=== PATIENT | male | born 1965 | race Caucasian/White ===

== ENCOUNTER 2020-05-26 14:57 | Emergency (ER) | payer OTHER, SELFPAY ==
--- NOTE | 2020-05-26 16:02 | PC.NURSE ---
provider and nursing at bedside
[2020-05-26 16:08] VITALS: BP 132/78; PULSE 65; RESP 17; TEMP 36.8; O2SAT 98; BMI 28.7
--- NOTE | 2020-05-26 16:12 | ECG_ITS ---
Test Reason : Dizziness Blood Pressure : / mmHG Vent. Rate : 058 BPM Atrial Rate : 058 BPM P-R Int : 154 ms QRS Dur : 096 ms QT Int : 398 ms P-R-T Axes : 037 015 034 degrees QTc Int : 390 ms Sinus bradycardia Otherwise normal ECG When compared with ECG of 05-JAN-2019 12:24, Premature ventricular complexes are no longer Present Referred By: Johnathan Daigle Electronically Signed By:Prsaanth Neri
--- NOTE | 2020-05-26 16:12 | CT_ITS ---
EXAMINATION: CT ANGIOGRAM HEAD CT ANGIOGRAM NECK CLINICAL INFORMATION: Dizziness. Evaluation for cerebellar stroke. History of aneurysm. COMPARISON: Brain MRI from 01/05/2019. CTA head and neck from 01/05/2019. TECHNIQUE: Initial noncontrast warp tension tester imaging of the head and neck was performed. Noncontrast head CT was also performed. Test bolus sequences followed by intravenous administration 70 mL of Omnipaque 350. Helical imaging was performed in the axial plane from the aortic arch to the skull vertex. Delayed postcontrast imaging of the head was also performed. The data was processed at the computer technologist's workstation for generation of MIP sequences. Angled MIPs and volume rendered reformatted images were also generated at an offline 3D workstation. Stenoses are assessed in accordance with NASCET criteria unless otherwise indicated. DLP: 2365 mGy-cm This CT examination was performed using dose optimization techniques as appropriate, variously including the following: *Automated exposure control. *Adjustment of mA and/or kV according to patient size (this includes techniques or standardized protocols for targeted exams where dose is matched to indication/reason for exam; i.e. extremities or head). *Use of iterative reconstruction technique. FINDINGS: CT Head: There is no evidence of acute intracranial hemorrhage or edematous territorial infarction. A few foci of hypoattenuation in the periventricular and deep white matter are consistent with mild microangiopathy. Chandra-white matter differentiation is preserved. The ventricles are normal in size and configuration. No evidence for obstructive hydrocephalus. No abnormal mass effect or midline shift. No extra-axial fluid collections. No pathologic intra-axial enhancement or regional oligemia. No acute soft tissue or osseous abnormalities. Mild mucosal thickening of the paranasal sinuses. Moderate leftward nasal septal deviation. The mastoid air cells and middle ear cavities remain well aerated. CT Neck: The thyroid gland and remaining cervical soft tissues are within normal limits. No significant abnormalities of the cervical spine. CT Upper Chest: The visualized lung apices and upper mediastinum are within normal limits. Neck CTA: Aortic Arch: Normal contour and caliber. Two vessel branching pattern of the arch with left common carotid artery arising from the brachiocephalic trunk. Great Vessel Origins: No significant stenosis of the branch origins. Right Common Carotid Artery: Normal opacification without focal stenosis or occlusion. Cervical Right Internal Carotid Artery: The distal ICA is tortuous. 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 Otherwise, normal opacification without focal stenosis or occlusion. Left Common Carotid Artery: Normal opacification without focal stenosis or occlusion. Cervical Left Internal Carotid Artery: Normal opacification without focal stenosis or occlusion. Cervical Right Vertebral Artery: Co-dominant. Normal opacification without focal stenosis or occlusion. Cervical Left Vertebral Artery: Co-dominant. The proximal left vertebral artery is partially obscured by streak artifact from dense contrast bolus within collateral venous structures in the left posterior neck. Otherwise, normal opacification without focal stenosis or occlusion. Brain CTA: Intracranial Internal Carotid Arteries: Calcific atherosclerotic disease of the intracranial internal carotid arteries without occlusion or flow-limiting stenosis. Normal contrast opacification of the petrous, cavernous, paraophthalmic, and supraclinoid segments of the internal carotid arteries without focal stenosis. Redemonstrated 0.15 cm saccular aneurysm versus infundibulum arising from the posterior wall of the left carotid terminus (image [id number]). The previously noted tiny superiorly projecting excrescence arising from the right carotid terminus and anteriorly projecting excrescence arising from the left carotid terminus appear to represent tiny infundibuli (images 340 and 335 of 1272 respectively). No evidence of new intracranial aneurysm. Right Anterior Cerebral Artery: The A1 segment is diminutive. Normal opacification of the distal segments of the [place]. Left Anterior Cerebral Artery: Normal A1 segment. Normal opacification of the distal segments of the [place]. Anterior Communicating Artery: Normal. Right Middle Cerebral Artery: Normal opacification of the M1 segment of the MCA without focal stenosis or occlusion. Normal arborization of the distal segments. Left Middle Cerebral Artery: Normal opacification of the M1 segment of the MCA without focal stenosis or occlusion. Normal arborization of the distal segments. Right Vertebral Artery: Normal opacification of the V4 segment. Normal opacification of the proximal segments of the posterior inferior cerebellar artery. Left Vertebral Artery: Normal opacification of the V4 segment. Normal opacification of the proximal segments of the posterior inferior cerebellar artery. Basilar Artery: Normal opacification without focal stenosis or occlusion. Normal appearance of the proximal superior cerebellar arteries. Right Posterior Cerebral Artery: Normal P1 segment. Normal opacification of the distal segments of the [place]. Left Posterior Cerebral Artery: The P1 segment is mildly diminutive. origin of the [place] with robust opacification of the posterior communicating artery. Normal opacification of the distal segments of the [place]. Normal opacification of the superior sagittal, straight, transverse, and sigmoid sinuses. CT/CT angio head neck IMPRESSION: 1. No evidence of acute intracranial hemorrhage or edematous territorial infarction. 2. CTA of the head and neck without proximal occlusion or flow-limiting stenosis. 3. Stable appearance of tiny vascular excrescences arising from the bilateral carotid termini suggestive of tiny aneurysms versus infundibuli. There also appears to be a tiny chronic saccular aneurysm arising from a region of tortuosity in the cervical segments of the right ICA.
[2020-05-26 16:17] VITALS: BP 132/78; PULSE 65; RESP 17; TEMP 36.8; O2SAT 98
[2020-05-26] MEDS: Meclizine HCl 25 MG TABLET PO (16:23)
[2020-05-26 16:37] LABS: MANUAL DIFF FLAG NO
[2020-05-26 16:40] LABS: Basophils Percent Auto 0.3 % (0-2); Eosinophils Absolute Auto 0.4 X10*3/uL (0.0-0.4); Eosinophils Percent Auto 5.8 % (0-4); Hematocrit 39.1 % (42-52); Hemoglobin 13.3 g/dl (14.0-18.0); Imm Gran Abs Auto 0.01 X10*3/uL (0.00-0.03); Imm Gran Pct Auto 0.2 % (0.0-0.4); Lymphocytes Absolute Auto 2.5 X10*3/uL (1.2-4.9); Lymphocytes Percent Auto 37.3 % (20-40); Mean Corpuscular Volume 91.1 fL (80-98); Mean Platelet Volume 9.1 fL (9.4-12.4); Monocytes Absolute Auto 0.6 X10*3/uL (0.1-1.2); Monocytes Percent Auto 8.5 % (2-11); Neutrophils Absolute Auto 3.2 X10*3/uL (2.0-8.3); Neutrophils Percent Auto 47.9 % (45-73); Platelet Count 283 X10*3/uL (160-400); Red Blood Count 4.29 X10*6/uL (4.60-5.80); Red Cell Distribution Width 12.5 % (11.0-16.0); White Blood Count 6.6 X10*3/uL (4.8-10.8)
[2020-05-26 16:50] LABS: INTERNATIONAL NORM RATIO 0.9 (0.9-1.1)
[2020-05-26 16:53] LABS: Partial Thromboplastin Time 37.2 SEC (24.1-38.0)
[2020-05-26 17:07] LABS: Alanine Aminotransferase 19 U/L (0-40); Albumin Level 4.4 g/dL (3.5-5.0); Alkaline Phosphatase 69 U/L (39-117); Anion Gap 11 (12-20); Aspartate Amino Transferase 17 U/L (5-37); Bilirubin Total 0.3 mg/dL (0.0-1.0); Blood Urea Nitrogen 24 mg/dL (9-16); Calcium 9.1 mg/dL (8.4-10.2); Carbon Dioxide 27 mmol/L (22-29); Chloride 107 mmol/L (96-108); Creatinine Clr Calc Pharmacy 112.9; Estimated Glomerular Filt Rate > 60; Glucose Random 109 mg/dL (60-115); Potassium 4.4 mmol/l (3.3-5.1); Sodium 141 mmol/L (135-145)
[2020-05-26 17:11] LABS: Troponin-I High Sensitivity < 3.5 ng/L (<3.5-35.0)
[2020-05-26 17:18] LABS: Stroke Lab Use COMPLETE
[2020-05-26 17:57] LABS: Glucose, Whole Blood 87 mg/dL (60-115)
[2020-05-26] MEDS: iohexoL 350 MG/ML 100 ML INFUS..BTL IV (17:58)
--- NOTE | 2020-05-26 18:53 | ED.GENADULT ---
HPI - General Adult General Chief complaint: Dizziness Stated complaint: LIGHTHEADED,DIZZY Time Seen by Provider: 05/26/20 15:49 Source: patient Mode of arrival: ambulatory Limitations: no limitations History of Present Illness HPI narrative: 54-year-old male who presents emergency department for evaluation of dizziness. The patient states that yesterday morning when he got out of bed he felt lightheaded and dizzy. He states that he felt off balance as if he was going to pass out, he states they did fall to the floor but did not injure himself. He states that since yesterday morning he has had episodes of dizziness that seemed to come on with position change. He states that the dizziness will last seconds to minutes and then resolved he states still. He has had occasional nausea associated with the dizziness but no vomiting. The patient states that approximately 1-1/2 years prior he did have right arm numbness and had a workup for stroke and was told that he had small brain aneurysms. He states these followed up for these aneurysms and they are non operable. The patient denied headache, fever, chills, numbness, weakness, loss of bowel or bladder control, difficulty walking, difficulty talking or trouble with his thought process. Related Data Previous Rx's Medication Instructions Recorded meclizine 25 mg PO TID PRN #30 tab 05/26/20 Allergies Allergy/AdvReac Type Severity Reaction Status Date / Time No Known Allergies Allergy Unverified 01/17/20 14:50 [No Known Allergies*] Review of Systems Review of Systems: Yes all other systems are reviewed and are negative Neurologic: Reports Abnormal speech present [facility] Past Medical History [facility] Narrative: Patient has no medical problems he takes medications for, he does have aneurysms of his brain which is followed by Neurosurgery, the patient is a adventure guide, he denies tobacco use, he drinks 15-20 beers per week, denies drug use. Social History Social History Alcohol intake: current Alcohol intake frequency: a few times a week Smoked in Last 30 Days: No Use of substances other than those prescribed or required for medical reasons: No Advance Directives: No Advance Directives Information Provided: No Physical Exam Vital Signs: Vital Signs: Last Vital Signs Temp 98.2 F 05/26/20 16:17 Pulse 65 05/26/20 16:17 Resp 17 05/26/20 16:17 BP 132/78 05/26/20 16:17 Pulse Ox 98 05/26/20 16:17 Body Mass Index 28.7 Const: General: cooperative and healthy appearing Orientation/consciousness: oriented to person and oriented to place Limitations: no limitations HENMT: Head: Yes normal to inspection, Yes normocephalic and Yes atraumatic Ears: external ears normal General nose exam: Normal external nose present Face and sinus: Yes normal facial exam Mouth: Normal oral and palatal mucosa present Throat: Yes posterior oropharynx normal Eyes: Periorbital: periorbital findings normal Eyelids: Yes eyelids normal Conjunctivae: conjunctivae normal Sclerae: sclerae normal Corneas: corneas normal Pupils: Equal, round and reactive pupils present Direct Ophthalmoscopy: normal light reflex Neck: Neck: Yes full ROM, Yes no lymphadenopathy, Yes no meningeal signs, Yes trachea midline and Yes supple Chest: Chest palpation & inspection: normal inspection of the chest and normal palpation of entire chest wall Resp: Effort & Inspection: normal respiratory effort and able to speak in complete sentences Auscultation: clear to auscultation bilaterally Cardio: Rate: regular rate Rhythm: regular rhythm Heart sounds: S1 normal heart sound present, S2 normal heart sound present and no murmurs GI: Inspection: Yes normal to inspection Palpation (GI): Soft to palpation, nontender, no guarding, not rigid and No hepatosplenomegaly present : General: Yes no CVA tenderness Back/Spine/Pelvis: Back: no CVA tenderness Cervical Spine: normal cervical lordosis Thoracic/Lumbar Spine: thoracic and lumbar spine normal to inspection Skin: Lesions: no lesions Rashes: no rashes Wounds: no wounds Neuro: General: oriented to person, oriented to place and no meningeal signs Cranial nerves: Yes CN's II-XII intact bilaterally and Yes Equal, round and reactive pupils present Cognition (Neuro): normal cognition Speech: Abnormal speech present Motor exam (neuro): 5/5 motor strength present throughout Coordination: [id number] test normal, [id number] test normal, tandem gait normal and Romberg test negative Extrem: General: Yes normal to inspection and Yes full ROM Psych: Appearance: well kempt Mental Status: mental status grossly normal Speech and movement: Normal speech and movement present Affect: normal affect Attitude: cooperative Thought process: Normal thought process present Thought content: Normal thought content present NIH Stroke Scale Internal: Initial- Upon Arrival Level of Consciousness: Alert Level of Consciousness Questions: Answers both questions correctly Level of Consciousness Commands: Performs both tasks correctly Best Gaze: Normal Visual: No visual loss Facial Palsy: Normal Motor Arm (Right): No drift Motor Arm (Left): No drift Motor Leg (Right): No drift Motor Leg (Left): No drift Limb Ataxia: Absent Sensory: Normal Best Language: No aphasia Dysarthia: Normal Extinction and Inattention: No abnormality Score: 0 Course Course Course Narrative: 54-year-old male who presents emergency department for evaluation of lightheadedness and dizziness which began yesterday morning, the episodes are episodic and are associated with position change. Patient's physical examination is unremarkable with a normal neurologic exam and NIH Stroke Scale of 0. CT scan of the brain did reveal a few foci of hypoattenuation in the periventricular and deep white matter which is consistent with mild micro angiopathy but no acute stroke. CTA of the head and neck did reveal 2 small aneurysms which were seen in the past with no evidence of intracranial bleeding. I did discuss these findings with the patient. My impression is the patient has benign positional vertigo. He did receive meclizine 25 mg orally here in the emergency department with some improvement of his symptoms. Given a prescription for meclizine 25 mg 3 times a day as needed for dizziness and he was given a note not return to work for 1 week. Medical Decision Making Lab Data Result diagrams: 05/26/20 16:31 05/26/20 16:31 Labs: Lab Results 05/26/20 05/26/20 05/26/20 Range/Units 16:31 16:31 16:31 WBC 6.6 (4.8-10.8) X10*3/uL RBC 4.29 L (4.60-5.80) X10*6/uL Hgb 13.3 L (14.0-18.0) g/dl Hct 39.1 L (42-52) % MCV 91.1 (80-98) fL MCH 31.0 (27.0-33.0) pg MCHC 34.0 (31.0-36.0) g/dl RDW 12.5 (11.0-16.0) % Plt Count 283 (160-400) X10*3/uL MPV 9.1 L (9.4-12.4) fL Immature Gran % (Auto) 0.2 (0.0-0.4) % Neut % (Auto) 47.9 (45-73) % Lymph % (Auto) 37.3 (20-40) % [place] % (Auto) 8.5 (2-11) % Eos % (Auto) 5.8 H (0-4) % Baso % (Auto) 0.3 (0-2) % Lymph # (Auto) 2.5 (1.2-4.9) X10*3/uL [place] # (Auto) 0.6 (0.1-1.2) X10*3/uL Eos # (Auto) 0.4 (0.0-0.4) X10*3/uL Baso # (Auto) 0.0 (0.0-0.2) X10*3/uL Abs Immat Gran (auto) 0.01 (0.00-0.03) X10*3/uL Absolute Neuts (auto) 3.2 (2.0-8.3) X10*3/uL Absolute Nucleated RBC 0.000 (0.0-0.012) X10*3/uL Nucleated RBC % (auto) 0.0 (0.0-0.2) /100WBC PT 11.0 (10.8-13.0) SEC INR 0.9 (0.9-1.1) APTT 37.2 (24.1-38.0) SEC Sodium (135-145) mmol/L Potassium (3.3-5.1) mmol/l Chloride (96-108) mmol/L Carbon Dioxide (22-29) mmol/L Anion Gap (12-20) BUN (9-16) mg/dL Creatinine (0.5-1.4) mg/dL Estim Creat Clear Calc Estimated GFR POC Glucose (60-115) mg/dL Random Glucose (60-115) mg/dL Calcium (8.4-10.2) mg/dL Total Bilirubin (0.0-1.0) mg/dL AST (5-37) U/L ALT (0-40) U/L Alkaline Phosphatase (39-117) U/L Troponin I High Sens < 3.5 (<3.5-35.0) ng/L Total Protein (6.5-8.0) g/dL Albumin (3.5-5.0) g/dL 05/26/20 05/26/20 Range/Units 16:31 17:54 WBC (4.8-10.8) X10*3/uL RBC (4.60-5.80) X10*6/uL Hgb (14.0-18.0) g/dl Hct (42-52) % MCV (80-98) fL MCH (27.0-33.0) pg MCHC (31.0-36.0) g/dl RDW (11.0-16.0) % Plt Count (160-400) X10*3/uL MPV (9.4-12.4) fL Immature Gran % (Auto) (0.0-0.4) % Neut % (Auto) (45-73) % Lymph % (Auto) (20-40) % [place] % (Auto) (2-11) % Eos % (Auto) (0-4) % Baso % (Auto) (0-2) % Lymph # (Auto) (1.2-4.9) X10*3/uL [place] # (Auto) (0.1-1.2) X10*3/uL Eos # (Auto) (0.0-0.4) X10*3/uL Baso # (Auto) (0.0-0.2) X10*3/uL Abs Immat Gran (auto) (0.00-0.03) X10*3/uL Absolute Neuts (auto) (2.0-8.3) X10*3/uL Absolute Nucleated RBC (0.0-0.012) X10*3/uL Nucleated RBC % (auto) (0.0-0.2) /100WBC PT (10.8-13.0) SEC INR (0.9-1.1) APTT (24.1-38.0) SEC Sodium 141 (135-145) mmol/L Potassium 4.4 (3.3-5.1) mmol/l Chloride 107 (96-108) mmol/L Carbon Dioxide 27 (22-29) mmol/L Anion Gap 11 L (12-20) BUN 24 H (9-16) mg/dL Creatinine 0.92 (0.5-1.4) mg/dL Estim Creat Clear Calc 112.9 Estimated GFR > 60 POC Glucose 87 (60-115) mg/dL Random Glucose 109 (60-115) mg/dL Calcium 9.1 (8.4-10.2) mg/dL Total Bilirubin 0.3 (0.0-1.0) mg/dL AST 17 (5-37) U/L ALT 19 (0-40) U/L Alkaline Phosphatase 69 (39-117) U/L Troponin I High Sens (<3.5-35.0) ng/L Total Protein 7.0 (6.5-8.0) g/dL Albumin 4.4 (3.5-5.0) g/dL Discharge Plan Discharge Clinical Impression: Benign paroxysmal positional vertigo Patient Disposition: Home, Self-Care Instructions: Benign Paroxysmal Positional Vertigo (ED) Additional Instructions: The CT scan of your brain did not reveal any large strokes, you do have 2 small aneurysms that were noted in the past but I do not think that these other cause of your dizziness. Your dizziness is most likely secondary to your inner ear balance pack and misinterpreting your movement. This is sometimes caused by a viral infection and is often self limiting and resolves in 1-2 weeks. Meclizine as a medication that helps with dizziness. Take meclizine 25 mg, 1 pill 3 times a day as needed for dizziness. No work for 1 week. Follow-up with your doctor in 2 days. Please return to the emergency department if your symptoms get worse or if you develop any symptoms that are concerning to you. Prescriptions: New meclizine 25 mg tablet 25 mg PO TID PRN (Reason: dizziness) Qty: 30 RF: 0 Stand Alone Forms: Work/School Release
[2020-05-26 19:13] VITALS: BP 106/70; PULSE 56; RESP 19; TEMP 36.6; O2SAT 100
== END 2020-05-26 19:16 | disposition home or self-care (01) ==
PROVIDERS: Emergency Provider Emergency Medicine Emergency Medical Services; PCP Internal Medicine
DX: H81.10 Benign paroxysmal vertigo, unspecified ear (principal); R93.0 Abnormal findings on diagnostic imaging of skull and head, not elsewhere classified
CPT/HCPCS: 36415; 70496; 70498; 80053; 82947; 84484; 85025; 85610; 85730; 93005; 99284; Q9967